=== PATIENT | female | born 1965 | race Caucasian/White ===

== ENCOUNTER 2016-11-24 18:41 | Emergency (ER) | payer OTHER ==
[~2016-11-24 18:41] MED LIST: ACETAMINOPHEN PO; ALBUTEROL17 GM INH; ANTIFUNGAL CREA28 GM TP; ASPIRIN PO; ASPIRIN81 M1 PO; CIPRO PO; CYANOCOBALAM1000 MCG PO; DOXYCYCLINE HY100 M1 PO; FLEXERIL10 M1 PO; FOLIC ACID1 MG PO; HYDROCHLOROTH12.5 M1 PO; HYDROCHLOROTH12.5 MG PO; KEFLEX PO; LEVAQUIN PO; LEVOTHYROXINE100 MCG PO; LOPRESSOR PO; MECLIZINE HCL12.5 MG PO; MEDI-MECLIZINE25 M1 PO; NAPROSYN375 MG PO; NAPROSYN500 MG PO; NORCO 5/325 TAB1 TAB PO; PRILOSEC PO; PROTONIX PO; PROVENTIL2 MG INH; SYMBICORT 16010.2 GM IH; SYNTHROID25 MCG PO; TAPAZOLE10 MG PO
== END 2016-11-24 18:46 | disposition home or self-care (01) ==
LOC: CED 18:41
DX: S40.811A Abrasion of right upper arm, initial encounter (principal); L03.113 Cellulitis of right upper limb; I10 Essential (primary) hypertension; W57.XXXA Bitten or stung by nonvenomous insect and other nonvenomous arthropods, initial encounter
CPT/HCPCS: 99282

== ENCOUNTER 2017-02-11 00:05 | Emergency (ER) | payer OTHER ==
--- NOTE | ~2017-02-11 | CT71 ---
[facility] A Service of [facility] RADIOLOGY TEXT RESULTS PATIENT: STEVIE KWONG LOCATION: [facility] : 63 UNIT #: [id number] AGE: [address]: Rmoe Mckeon MD SEX: F ORDER DR: [id number] [facility] [address] [facility] [address]. [place], [place] [address] [id number] E MR#: [id number] Acc #: [id number] NAME: STEVIE KWONG. : 1965 SEX: F STUDY DATE/TIME: UNIT: [facility] ROOM: STUDY DESCRIPTION: CT Head Wo Contrast Attending Physician: Rome Mckeon M.D. Ordering Physician: Rome Mckeon M.D. Primary Care Physician: Christal Lowery M.D. MEDICAL IMAGING REPORT This report is preliminary unless electronic signature is present EXAM Head CT 245 INDICATIONS Headache and dizziness for 3 days. History of a fall last night. COMPARISON 08/17/2014 TECHNIQUE Axial noncontrast images were obtained from the skull base to the vertex. This CT exam was performed with one or more of the following radiation dose reduction techniques: automatic exposure control, adjustment of mA and/or kV according to patient size, and iterative reconstruction. FINDINGS Ventricular size and configuration are normal. There is no evidence of acute infarct or hemorrhage. There are no extraaxial fluid collections. No mass lesion or mass effect is seen. There are no skull fractures. IMPRESSION Normal noncontrast head CT. Dictated by... Dino Khoury Jr., M.D. THIS IS AN ELECTRONICALLY VERIFIED REPORT Dino Khoury Jr., M.D. at 02/11/2017 9:24 PM RLK/to TD: 02/11/2017 10:59 JOB #: [id number] [facility] A Service of [facility] RADIOLOGY TEXT RESULTS PATIENT: STEVIE KWONG LOCATION: [facility] : 63 UNIT #: [id number] AGE: [address]: Rome Mckeon MD SEX: F ORDER DR: MEDICAL IMAGING REPORT Page 1 of 1 COPY
== END 2017-02-11 03:30 | disposition home or self-care (01) ==
LOC: CED 00:05
DX: R51 Headache (principal); F17.200 Nicotine dependence, unspecified, uncomplicated
CPT/HCPCS: 70450; 96372; 99284; J1885